=== PATIENT | male | born 1955 | race Caucasian/White ===

== ENCOUNTER 2017-09-11 11:25 | Inpatient (IN) | payer OTHER ==
[~2017-09-11] VITALS: Ht 177.8 cm; Wt 68.8 kg
[2017-09-11] MEDS ORDERED: FINA5TAB4 PO (12:07)
[2017-09-11] MEDS ORDERED: SULF1TAB23 PO (12:07)
[2017-09-11] MEDS ORDERED: TAMS-11 PO (12:07)
[2017-09-11 12:08] VITALS: BP 122/79
[2017-09-11] MEDS ORDERED: LACTATED RINGERS 1,000 ML IV SCH (12:42)
[2017-09-11] MEDS ORDERED: METOCLOPRAMIDE 5 MG/ML, 2ML ONE (13:58)
[2017-09-11] MEDS ORDERED: DEXAMETHASONE 4 MG/ML, 1ML ONE (13:58)
[2017-09-11] MEDS ORDERED: ONDANSETRON 2MG/ML, 2ML ONE (13:58)
[2017-09-11] MEDS ORDERED: PROPOFOL 10 MG/ML, 20ML ONE (13:58)
[2017-09-11] MEDS ORDERED: HYDROmorphone 1 MG/ML, 1ML IV PRN (15:30)
[2017-09-11] MEDS ORDERED: ONDANSETRON 2MG/ML, 2ML IVPush PRN (15:30)
[2017-09-11] MEDS ORDERED: LABETALOL 5MG/ML, 20ML IV PRN (15:30)
[2017-09-11] MEDS ORDERED: MEPERIDINE/PF 25MG/0.5ML IVPush PRN (15:30)
[2017-09-11] MEDS ORDERED: MIDAZOLAM 1 MG/ML, 2ML IV PRN (15:30)
[2017-09-11] MEDS ORDERED: OXYcodone 5 MG/5 ML ORAL.SOL UDC PO PRN (15:30)
[2017-09-11] MEDS ORDERED: OPIUM/BELLADONNA SUPP.RECT 16.2-30 MG ONE (15:46)
[2017-09-11] MEDS ORDERED: OXYcodone 5 MG/5 ML ORAL.SOL UDC ONE (15:46)
[2017-09-11] MEDS ORDERED: FENTANYL PF 100 MCG/2ML ONE (15:46)
[2017-09-11] MEDS: FENTANYL PF 100 MCG/2ML IV PRN ×2 (15:55→16:12)
[2017-09-11] MEDS ORDERED: OPIUM/BELLADONNA SUPP.RECT 16.2-30 MG PR ONE (16:00)
[2017-09-11] MEDS ORDERED: MEPERIDINE/PF 50 MG/ML ONE (16:18)
[2017-09-11] MEDS ORDERED: ONDANSETRON 2MG/ML, 2ML IV PRN (17:30)
[2017-09-11] MEDS: LACTATED RINGERS 1,000 ML IV SCH (17:30)
[2017-09-11] MEDS ORDERED: ACETAMINOPHEN 325 MG TABLET PO PRN (17:30)
[2017-09-11] MEDS ORDERED: morphine SULFATE 10 MG/ML, 1ML IV PRN (17:30)
[2017-09-11] MEDS ORDERED: DIPHENHYDRAMINE 25 MG CAPSULE PO PRN (17:30)
[2017-09-11] MEDS ORDERED: OPIUM/BELLADONNA SUPP.RECT 16.2-30 MG PR PRN (17:30)
[2017-09-11 19:17] VITALS: BP 111/71
[2017-09-12 00:07] VITALS: BP 107/66
[2017-09-12] MEDS: CIPROFLOXACIN/PMX 400MG/200ML 200 ML IVPB SCH ×2 (02:33→14:16)
[2017-09-12 03:52] VITALS: BP 111/67
[2017-09-12 05:25] LABS: ANION GAP 9 mmol/L (5-15); CALCIUM 8.3 mg/dL (8.5-10.1); CHLORIDE 106 mmol/L (98-107)
[2017-09-12 05:26] LABS: CREATININE 1.14 mg/dL (0.7-1.3)
[2017-09-12 07:16] VITALS: BP 117/71
[2017-09-12] MEDS: LACTATED RINGERS 1,000 ML IV SCH (08:00)
[2017-09-12] MEDS: OXYcodone IR 5MG TABLET PO PRN ×3 (08:30→14:16)
[2017-09-12] MEDS ORDERED: FINASTERIDE 5 MG TABLET PO SCH (09:00)
[2017-09-12] MEDS ORDERED: OXYC5TAB3 PO (10:55)
[2017-09-12 13:07] VITALS: BP 114/73
== END 2017-09-12 15:00 | disposition home or self-care (01) | DRG 714 ==
LOC: OUT 11:25 → 4NOR 16:42 → OUT 17:02 → 4NOR 17:20 → DCLOUNGE 09-12 14:52
PROVIDERS: ADMIT Urology; ATTEND Urology
PROC: 0VT08ZZ Resection of Prostate, Via Natural or Artificial Opening Endoscopic (ICD-10-PCS; principal; 2017-09-11 13:30)
DX: N40.1 Benign prostatic hyperplasia with lower urinary tract symptoms (principal); N32.3 Diverticulum of bladder; R33.8 Other retention of urine
CPT/HCPCS: 36415; 80048; 85014; 85018; 88305; 93005; J0744; J1100; J2175; J2405; J2704; J3010; J2765; J7120; Q0163